=== PATIENT | male | born 1940 | race Caucasian/White ===

== ENCOUNTER → 2019-07-01 09:19 | Outpatient (CLI) | payer MEDICARE, SELFPAY ==
[2019-07-01 11:09] LABS: Add Manual Diff / Slide Review NO; Basophils Absolute Auto 0 /uL (0-100); Basophils Percent Auto 0.6 % (0-2); Eosinophils Absolute Auto 100 /uL (0-450); Eosinophils Percent Auto 1.5 % (2-4); Hematocrit 42.5 % (41-53); Hemoglobin 14.7 g/dL (13.5-17.5); Lymphocytes Absolute Auto 2200 /uL (1100-4500); Lymphocytes Percent Auto 27.8 % (25-40); Mean Corpuscular HGB Conc 34.7 % (30-36); Mean Corpuscular Hemoglobin 32.1 PG (26-34); Mean Corpuscular Volume 92.7 fL (80-100); Monocytes Absolute Auto 800 /uL (0-900); Monocytes Percent Auto 10.1 % (3-14); Neutrophils Absolute Auto 4800 /uL (1500-7000); Platelet Count 225 X10^3/uL (150-400); Red Blood Cell Count 4.58 X10^6/uL (4.5-5.9); Red Cell Distribution Width 13.4 % (11.6-14.8)
[2019-07-01 11:37] LABS: Erythrocyte Sedimentation Rate 7 MM/HR (0-15)
[2019-07-01 12:03] LABS: C-Reactive Protein Quant 0.5 mg/dL (<1.0)
== END ==
PROVIDERS: Visit Provider Physician Assistant Surgical
DX: M54.5 Low back pain (principal)
CPT/HCPCS: 36415; 85025; 85651; 86140

== ENCOUNTER → 2020-04-30 21:24 | Outpatient (ROUT) | payer MEDICARE, SELFPAY ==
[2020-04-30 22:01] LABS: Add Manual Diff / Slide Review NO; Basophils Absolute Auto 0 /uL (0-100); Basophils Percent Auto 0.4 % (0-2); Eosinophils Absolute Auto 200 /uL (0-450); Eosinophils Percent Auto 2.1 % (2-4); Hematocrit 40.1 % (41-53); Hemoglobin 13.9 g/dL (13.5-17.5); Lymphocytes Absolute Auto 2100 /uL (1100-4500); Lymphocytes Percent Auto 23.8 % (25-40); Mean Corpuscular HGB Conc 34.6 % (30-36); Mean Corpuscular Hemoglobin 31.8 PG (26-34); Monocytes Absolute Auto 800 /uL (0-900); Monocytes Percent Auto 9.6 % (3-14); Neutrophils Absolute Auto 5500 /uL (1500-7000); Neutrophils Percent Auto 64.1 % (50-75); Platelet Count 204 X10^3/uL (150-400); Red Blood Cell Count 4.36 X10^6/uL (4.5-5.9); Red Cell Distribution Width 13.4 % (11.6-14.8); White Blood Cell Count 8.6 X10^3/uL (4.5-11.0)
[2020-04-30 22:18] LABS: Alanine Aminotransferase 32 IU/L (<50); Albumin 3.7 g/dL (3.5-5.0); Albumin Globulin Ratio 1.4 (1.0-2.8); Alkaline Phosphatase 88 U/L (38-126); Aspartate Aminotransferase 18 IU/L (17-59); Bilirubin Total 0.5 mg/dL (0.2-1.3); Blood Urea Nitrogen 24 mg/dL (9-20); Calcium 9.9 mg/dL (8.4-10.2); Carbon Dioxide 22 mmol/L (22-32); Chloride 107 mmol/L (98-107); Cholesterol 153 mg/dL (140-199); Estimated Glomerular Filt Rate 55.4 mL/min (>60); Globulin 2.7 g/dL (1.7-4.1); Glucose 164 mg/dL (80-110); HDL Cholesterol 30 mg/dL (40-60); HEMOLYSIS < 15 (0-50); LDL Cholesterol Calculated 61 mg/dL (<100); Potassium 4.3 mmol/L (3.4-5.1); Sodium 137 mmol/L (137-145); Total Protein 6.4 g/dL (6.3-8.2); Triglycerides 311 mg/dL (35-150)
[2020-04-30 23:10] LABS: Hemoglobin A1C% w Est Avg Glu 7.8 % (4.0-6.0)
== END ==
PROVIDERS: Visit Provider Physician Assistant
DX: E78.2 Mixed hyperlipidemia (principal); R73.03 Prediabetes; I10 Essential (primary) hypertension
CPT/HCPCS: 80053; 80061; 83036; 85025

== ENCOUNTER → 2020-07-27 07:44 | Outpatient (CLI) | payer MEDICARE, SELFPAY ==
[2020-07-27 08:09] LABS: Add Manual Diff / Slide Review NO; Basophils Absolute Auto 0 /uL (0-100); Basophils Percent Auto 0.7 % (0-2); Eosinophils Absolute Auto 100 /uL (0-450); Eosinophils Percent Auto 2.2 % (2-4); Hematocrit 41.4 % (41-53); Hemoglobin 14.2 g/dL (13.5-17.5); Lymphocytes Absolute Auto 1900 /uL (1100-4500); Mean Corpuscular HGB Conc 34.2 % (30-36); Mean Corpuscular Hemoglobin 31.7 PG (26-34); Mean Corpuscular Volume 92.5 fL (80-100); Monocytes Absolute Auto 600 /uL (0-900); Monocytes Percent Auto 8.4 % (3-14); Neutrophils Absolute Auto 4300 /uL (1500-7000); Neutrophils Percent Auto 61.7 % (50-75); Platelet Count 208 X10^3/uL (150-400); Red Blood Cell Count 4.48 X10^6/uL (4.5-5.9); Red Cell Distribution Width 13.6 % (11.6-14.8); White Blood Cell Count 6.9 X10^3/uL (4.5-11.0)
[2020-07-27 08:44] LABS: Alanine Aminotransferase 45 IU/L (<50); Albumin 3.9 g/dL (3.5-5.0); Albumin Globulin Ratio 1.4 (1.0-2.8); Alkaline Phosphatase 89 U/L (38-126); Aspartate Aminotransferase 20 IU/L (17-59); BUN Creatinine Ratio 17.6 (6-22); Bilirubin Total 0.7 mg/dL (0.2-1.3); Blood Urea Nitrogen 25 mg/dL (9-20); Calcium 9.8 mg/dL (8.4-10.2); Carbon Dioxide 31 mmol/L (22-32); Chloride 105 mmol/L (98-107); Cholesterol 148 mg/dL (140-199); Estimated Glomerular Filt Rate 48.2 mL/min (>60); Globulin 2.8 g/dL (1.7-4.1); Glucose 193 mg/dL (80-110); HDL Cholesterol 29 mg/dL (40-60); HEMOLYSIS < 15 (0-50); LDL Cholesterol Calculated 56 mg/dL (<100); Potassium 5.1 mmol/L (3.4-5.1); Sodium 140 mmol/L (137-145); Total Protein 6.7 g/dL (6.3-8.2); Triglycerides 313 mg/dL (35-150)
[2020-07-27 08:54] LABS: Hemoglobin A1C% w Est Avg Glu 8.4 % (4.0-6.0)
== END ==
PROVIDERS: PCP Physician Assistant; Referring Provider Physician Assistant; Visit Provider Physician Assistant
DX: I10 Essential (primary) hypertension (principal); E78.2 Mixed hyperlipidemia; E11.9 Type 2 diabetes mellitus without complications
CPT/HCPCS: 36415; 80053; 80061; 83036; 85025

== ENCOUNTER → 2020-08-13 08:33 | Outpatient (CLI) | payer MEDICARE, SELFPAY ==
[2020-08-13 09:49] LABS: Add Manual Diff / Slide Review NO; Basophils Absolute Auto 0 /uL (0-100); Basophils Percent Auto 0.5 % (0-2); Eosinophils Absolute Auto 100 /uL (0-450); Eosinophils Percent Auto 1.1 % (2-4); Lymphocytes Absolute Auto 1800 /uL (1100-4500); Lymphocytes Percent Auto 23.4 % (25-40); Mean Corpuscular HGB Conc 33.4 % (30-36); Mean Corpuscular Hemoglobin 30.9 PG (26-34); Mean Corpuscular Volume 92.6 fL (80-100); Monocytes Absolute Auto 500 /uL (0-900); Monocytes Percent Auto 7.2 % (3-14); Neutrophils Absolute Auto 5100 /uL (1500-7000); Neutrophils Percent Auto 67.8 % (50-75); Platelet Count 224 X10^3/uL (150-400); Red Blood Cell Count 4.54 X10^6/uL (4.5-5.9); Red Cell Distribution Width 13.5 % (11.6-14.8); White Blood Cell Count 7.6 X10^3/uL (4.5-11.0)
[2020-08-13 10:07] LABS: Hemoglobin A1C% w Est Avg Glu 8.3 % (4.0-6.0)
[2020-08-13 10:24] LABS: Alanine Aminotransferase 47 IU/L (<50); Albumin 3.8 g/dL (3.5-5.0); Albumin Globulin Ratio 1.3 (1.0-2.8); Alkaline Phosphatase 80 U/L (38-126); Aspartate Aminotransferase 23 IU/L (17-59); Bilirubin Total 0.9 mg/dL (0.2-1.3); Blood Urea Nitrogen 26 mg/dL (9-20); Calcium 9.8 mg/dL (8.4-10.2); Carbon Dioxide 29 mmol/L (22-32); Chloride 104 mmol/L (98-107); Cholesterol 175 mg/dL (140-199); Estimated Glomerular Filt Rate 53.4 mL/min (>60); Glucose 167 mg/dL (80-110); HDL Cholesterol 32 mg/dL (40-60); HEMOLYSIS < 15 (0-50); Potassium 4.7 mmol/L (3.4-5.1); Sodium 136 mmol/L (137-145); Total Protein 6.8 g/dL (6.3-8.2); Triglycerides 446 mg/dL (35-150)
== END ==
PROVIDERS: PCP Physician Assistant; Referring Provider Physician Assistant; Visit Provider Physician Assistant
DX: I10 Essential (primary) hypertension (principal); E78.2 Mixed hyperlipidemia; E11.9 Type 2 diabetes mellitus without complications
CPT/HCPCS: 80053; 80061; 83036; 85025

== ENCOUNTER → 2020-12-26 07:59 | Outpatient (CLI) | payer MEDICARE, SELFPAY ==
[2020-12-26 08:51] LABS: Hemoglobin A1C% w Est Avg Glu 6.8 % (4.0-6.0)
[2020-12-26 08:54] LABS: Add Manual Diff / Slide Review NO; Basophils Absolute Auto 0 /uL (0-100); Basophils Percent Auto 0.6 % (0-2); Eosinophils Absolute Auto 100 /uL (0-450); Eosinophils Percent Auto 1.5 % (2-4); Hematocrit 41.1 % (41-53); Lymphocytes Absolute Auto 1700 /uL (1100-4500); Lymphocytes Percent Auto 23.4 % (25-40); Mean Corpuscular HGB Conc 34.1 % (30-36); Mean Corpuscular Hemoglobin 31.6 PG (26-34); Mean Corpuscular Volume 92.7 fL (80-100); Monocytes Absolute Auto 500 /uL (0-900); Neutrophils Absolute Auto 4900 /uL (1500-7000); Neutrophils Percent Auto 67.5 % (50-75); Platelet Count 229 X10^3/uL (150-400); Red Blood Cell Count 4.43 X10^6/uL (4.5-5.9); Red Cell Distribution Width 13.3 % (11.6-14.8); White Blood Cell Count 7.2 X10^3/uL (4.5-11.0)
[2020-12-26 09:04] LABS: Alanine Aminotransferase 35 IU/L (<50); Albumin 3.9 g/dL (3.5-5.0); Albumin Globulin Ratio 1.6 (1.0-2.8); Alkaline Phosphatase 82 U/L (38-126); Aspartate Aminotransferase 21 IU/L (17-59); BUN Creatinine Ratio 16.2 (6-22); Bilirubin Total 0.7 mg/dL (0.2-1.3); Blood Urea Nitrogen 19 mg/dL (9-20); Calcium 9.9 mg/dL (8.4-10.2); Carbon Dioxide 24 mmol/L (22-32); Chloride 105 mmol/L (98-107); Cholesterol 151 mg/dL (140-199); Estimated Glomerular Filt Rate > 60.0 mL/min (>60); Globulin 2.5 g/dL (1.7-4.1); Glucose 132 mg/dL (80-110); HDL Cholesterol 34 mg/dL (40-60); HEMOLYSIS < 15 (0-50); LDL Cholesterol Calculated 69 mg/dL (<100); Potassium 4.4 mmol/L (3.4-5.1); Sodium 139 mmol/L (137-145); Total Protein 6.4 g/dL (6.3-8.2); Triglycerides 239 mg/dL (35-150)
[2020-12-26 09:21] LABS: Creatinine Urine Random 103.3 mg/dL
[2020-12-26 09:42] LABS: Microalbumi Creatinin Ratio Ur 220.7 ug/mg CR (<30); Microalbumin Urine Random 22.8 mg/dL (0-1.6)
== END ==
PROVIDERS: PCP Physician Assistant; Referring Provider Physician Assistant; Visit Provider Physician Assistant
DX: E11.69 Type 2 diabetes mellitus with other specified complication (principal); N18.30 Chronic kidney disease, stage 3 unspecified; E11.22 Type 2 diabetes mellitus with diabetic chronic kidney disease
CPT/HCPCS: 36415; 80053; 80061; 82043; 82570; 83036; 85025

== ENCOUNTER → 2021-04-09 11:56 | Outpatient (CLI) | payer MEDICARE, SELFPAY ==
--- NOTE | 2021-04-09 12:12 | DI.CT.S_ITS ---
PROCEDURE: CT MASTOID TEMPORAL INDICATIONS: Dizziness and giddiness COMPARISON: [facility], CT, CT IAC WITHOUT CONTRAST, 08/01/2020, 8:33. TECHNIQUE: Noncontrast 0.6 mm thick direct axial and coronal sections acquired through each temporal bone separately. FINDINGS: Image quality: Excellent. RIGHT: External auditory canal: Canal has a normal appearance. Middle ear: The middle ear structures, including the ossicles and tympanic membrane, appear normal. No abnormal fluid or soft tissue density. Inner ear: Inner ear is normally formed and appears unremarkable. Facial nerve appears normal throughout is course. Mastoids: Trace right mastoid air cell effusion. LEFT: Postsurgical changes of left canal wall up mastoidectomy for cochlear implantation. There is fluid/soft tissue density within the mastoidectomy cavity, nonspecific. Plate opacification of the left mastoid air cells. Cochlear implant leads appear to be intact and are in the normal expected position. Remaining inner ear structures are normal. IMPRESSION: Postsurgical changes of left canal wall up mastoidectomy for cochlear implantation. Appropriate normal position of cochlear implant leads. No semicircular canal dehiscence on the left. Complete fluid/soft tissue opacification of the left mastoid air cells and mastoidectomy bowl, nonspecific. Normal right temporal bone CT. Dictated by: Bryon Yang M.D. on 04/09/2021 at 17:01 Approved by: Bryon Yagn M.D. on 04/09/2021 at 17:06
== END ==
PROVIDERS: PCP Physician Assistant; Referring Provider Otolaryngology; Visit Provider Otolaryngology
DX: R42 Dizziness and giddiness (principal); Z96.21 Cochlear implant status
CPT/HCPCS: 70480

== ENCOUNTER 2022-12-29 19:07 | Observation (INO) | payer MEDICARE, SELFPAY ==
[2022-12-29] VITALS (13 sets, daily range): BP systolic 132–180; BP diastolic 58–74; PULSE 71–80; RESP 16–33; O2SAT 93–96; BMI 27.9
--- NOTE | 2022-12-29 19:26 | DI.RAD.S_ITS ---
PROCEDURE: XR CHEST 1V INDICATIONS: chest pain TECHNIQUE: One view of the chest was acquired. COMPARISON: None. FINDINGS: Surgical changes and devices: Sternotomy wires. Lungs and pleura: Low lung volumes. No dense consolidation or pleural effusion. Mediastinum: Heart size is at the upper limit of normal. Bones and chest wall: No suspicious bony lesions. Overlying soft tissues appear unremarkable. IMPRESSION: No acute radiographic abnormality. Dictated by: Jack Contreras M.D. on 12/29/2022 at 20:56 Approved by: Jack Contreras M.D. on 12/29/2022 at 20:56
--- NOTE | 2022-12-29 19:33 | DI.RAD.S_ITS ---
PROCEDURE: XR KNEE RT 3V INDICATIONS: fall TECHNIQUE: 3 views of the knee were acquired. COMPARISON: None. FINDINGS: Bones: No displaced fracture or dislocation. [id number] degenerative changes. Periarticular calcifications are present. Joint space narrowing, particularly pronounced in the lateral patellofemoral compartment. Soft tissues: Possible small knee joint effusion and periarticular calcifications, as well as chondrocalcinosis. Vascular calcifications also present. IMPRESSION: Degenerative changes, particularly in the lateral patellofemoral compartment. Small knee joint effusion. Periarticular calcifications, as well as chondrocalcinosis. If there is high concern for further derangement, consider MRI evaluation. Dictated by: Jcak Contreras M.D. on 12/29/2022 at 20:56 Approved by: Jack Contreras M.D. on 12/29/2022 at 20:58
--- NOTE | 2022-12-29 19:34 | DI.CT.S_ITS ---
PROCEDURE: CT HEAD/BRAIN WO CON INDICATIONS: fall TECHNIQUE: Noncontrast 4.5 mm thick angled axial sections acquired from the foramen magnum to the vertex, with coronal and sagittal reformats. For radiation dose reduction, the following was used: automated exposure control, adjustment of mA and/or kV according to patient size. COMPARISON: [facility], CT, CT IAC WITHOUT CONTRAST, 08/01/2020, 8:33. FINDINGS: Image quality: Good CSF spaces: Basal cisterns are patent. Lateral ventricles are symmetric. Volume: Vascular calcifications. Periventricular white matter disease is commonly seen with chronic microangiopathy. Volume loss is present. These findings are moderate Brain: No intracranial hemorrhage. Armas-white differentiation is grossly maintained. Craniofacial structures: Right periorbital contusion. Left scalp device and left mastoid postsurgical changes. Paranasal sinus mucous cysts. IMPRESSION: No acute intracranial abnormality. Dictated by: Jack Contreras M.D. on 12/29/2022 at 20:21 Approved by: Jack Contreras M.D. on 12/29/2022 at 20:24
--- NOTE | 2022-12-29 19:34 | DI.CT.S_ITS ---
PROCEDURE: CT CERVICAL SPINE WO CON INDICATIONS: fall TECHNIQUE: Noncontrast 3 mm thick sections acquired from the skull base to the T4 level. Sagittal and coronal reformats were then constructed. For radiation dose reduction, the following was used: automated exposure control, adjustment of mA and/or kV according to patient size. COMPARISON: None. FINDINGS: Image quality: Good Bones: [id number] degenerative changes including trace anterolisthesis of C3 on C4 and C4 on C5. Vertebral body heights are well maintained. No traumatic malalignment. Moderate pannus formation around the C1/C2 articulation. Sternotomy wires partially seen. Soft tissues: Vascular calcifications. No pathologic prevertebral soft tissue swelling. IMPRESSION: No acute fracture or traumatic subluxation of the cervical spine. Irza-ee-lzjxzbav spondylosis. If there is high concern for further derangement, consider MRI evaluation. Dictated by: Jack Contreras M.D. on 12/29/2022 at 20:25 Approved by: Jack Contreras M.D. on 12/29/2022 at 20:28
[2022-12-29 20:42] LABS: Add Manual Diff / Slide Review NO; Basophils Absolute Auto 100 /uL (0-100); Basophils Percent Auto 0.5 % (0-2); Eosinophils Absolute Auto 200 /uL (0-450); Eosinophils Percent Auto 1.6 % (2-4); Hemoglobin 12.4 g/dL (13.5-17.5); Lymphocytes Absolute Auto 2300 /uL (1100-4500); Lymphocytes Percent Auto 19.4 % (25-40); Mean Corpuscular HGB Conc 34.5 % (30-36); Mean Corpuscular Hemoglobin 30.9 PG (26-34); Mean Corpuscular Volume 89.4 fL (80-100); Monocytes Absolute Auto 1400 /uL (0-900); Neutrophils Absolute Auto 7800 /uL (1500-7000); Neutrophils Percent Auto 66.5 % (50-75); Platelet Count 211 X10^3/uL (150-400); Red Blood Cell Count 4.03 X10^6/uL (4.5-5.9); Red Cell Distribution Width 13.4 % (11.6-14.8); White Blood Cell Count 11.7 X10^3/uL (4.5-11.0)
[2022-12-29 20:57] LABS: INR 1.1 (0.9-1.3); Prothrombin Time 12.6 SECONDS (10.1-12.7)
--- NOTE | 2022-12-29 20:59 | ED_ITS ---
HPI - General Adult General Chief complaint: Trauma Stated complaint: rt leg pain, passed out Time Seen by Provider: 12/29/22 19:44 Source: patient and family Mode of arrival: Wheelchair History of Present Illness HPI narrative: 82-year-old gentleman with history of coronary artery disease status post four- vessel CABG, peripheral arterial disease, aortic stenosis, hypertension, hyperlipidemia, chronic kidney disease, type 2 diabetes who presents to the emergency room 3 days after a syncopal episode with increasing weakness to the point it required 2 person assist to get him out of the house and into a car. Four days ago he describes an episode where he stumbled walking to the bathroom falling on his right knee with right knee pain. The right knee pain has gotten significantly worse. He was having nausea and vomiting for at least 2 days and 3 days ago when getting up to go to the bathroom, negotiating the right knee pain he had a full syncopal episode in the bathroom hitting his head and injuring his right knee more. He did not want to come to the emergency department. He notes that the nausea and vomiting was significantly better as of yesterday however he still is eating and drinking very little. With prior cardiac episodes his presentation has been complaints of nausea. His son and [id number] tried to get him to an orthopedic appointment today regarding the right knee injury however he was too weak to be seen and they came to the emergency room for further evaluation. He is not describing fevers, cough, chills. Is deaf with cochlear implants. Related Data Allergies Allergy/AdvReac Type Severity Reaction Status Date / Time No Known Drug Allergies Allergy Verified 12/29/22 22:36 Review of Systems Review of Systems Narrative: Pertinent positive and negative findings as per HPI Patient History Medical History (Updated 12/29/22 @ 23:45 by Kay Orozco MD) Chronic kidney disease Coronary artery disease Diabetes Hyperlipidemia Hypertension Surgical History (Updated 12/29/22 @ 23:15 by Kay Orozco MD) Status post aorto-coronary artery bypass graft Social History Smoking Status: Never smoker Smoking Status: Never smoker Substance Use Type: does not use Exam Initial Vital Signs Initial Vital Signs: Vital Signs Pulse Rate 80 12/29/22 19:20 Respiratory Rate 18 12/29/22 19:20 Blood Pressure 180/74 H 12/29/22 19:20 Pulse Oximetry 95 12/29/22 19:20 Oxygen Delivery Method Room Air 12/29/22 19:20 General: Chronically ill-appearing, can read lips and participate in exam. HEENT: Dry mucous membranes, normal sclera with reactive pupils, significant contusion around his right eye but able to fully open that eye, Neck: No JVD, supple Respiratory: Lungs are clear to auscultation, no wheezing no rales no rhonchi. Full and symmetrical air movement. No tenderness to palpation with manipulation of his ribcage Cardiac: Regular rate and rhythm, 3/6 systolic murmur Abdomen: Soft, nontender, good bowel tones, no flank pain. No tenderness along thoracic or lumbar spine with palpation. No tenderness to pelvic ring with manipulation Skin: Very dry skin, multiple bruises over his arms and right hip. Neurologic: Globally weak but otherwise Grossly neurologically intact with no obvious asymmetries or abnormalities Extremities: No tenderness to the left lower extremity, right knee is significantly tender to tender for more thorough exam with minimal effusion. Does not have tenderness at the hip or the ankle. Psych: Cooperative, poor overall insight Course Orders Ordered: ED Orders 12/29/22 19:26 XR chest 1V Stat COVID19 -Nasal RAPID Stat EKG-12 Lead Stat 12/29/22 19:33 XR knee RT 3V Stat 12/29/22 19:34 CT cervical spine wo con Stat CT head/brain wo con Stat 12/29/22 20:17 Complete Blood Count AUTO DIFF Stat Comprehensive Metabolic Panel Stat Lipase Stat Magnesium Stat PTT Partial Thromboplastin Nick Stat Prothrombin Time INR Stat Troponin & CK Cardiac Panel Stat Vital Signs Vital signs: Vital Signs - 8 hr 12/29/22 19:20 12/29/22 19:31 12/29/22 19:32 Pulse Rate 80 79 79 Respiratory Rate 18 18 17 Blood Pressure 180/74 H Pulse Oximetry 95 96 95 Oxygen Delivery Method Room Air 12/29/22 19:32 12/29/22 20:19 12/29/22 20:30 Pulse Rate 75 75 Respiratory Rate 16 20 Blood Pressure 180/74 H Pulse Oximetry 95 94 Oxygen Delivery Method 12/29/22 21:00 12/29/22 21:30 12/29/22 22:00 Pulse Rate 75 73 76 Respiratory Rate 33 H 21 20 Blood Pressure Pulse Oximetry 95 96 94 Oxygen Delivery Method 12/29/22 22:30 Pulse Rate 72 Respiratory Rate 23 Blood Pressure Pulse Oximetry 95 Oxygen Delivery Method Medical Decision Making Lab Data 12/29/22 20:17 12/29/22 20:17 Labs: Lab Results 12/29/22 12/29/22 12/29/22 Range/Units 20:17 20:17 20:17 WBC 11.7 H (4.5-11.0) X10^3/uL RBC 4.03 L (4.5-5.9) X10^6/uL Hgb 12.4 L (13.5-17.5) g/dL Hct 36.0 L (41-53) % MCV 89.4 (80-100) fL MCH 30.9 (26-34) PG MCHC 34.5 (30-36) % RDW 13.4 (11.6-14.8) % Plt Count 211 (150-400) X10^3/uL Neut % (Auto) 66.5 (50-75) % Lymph % (Auto) 19.4 L (25-40) % [place] % (Auto) 12.0 (3-14) % Eos % (Auto) 1.6 L (2-4) % Baso % (Auto) 0.5 (0-2) % Neut # (Auto) 7800 H (3485-4366) /uL Lymph # (Auto) 2300 (5594-5112) /uL [place] # (Auto) 1400 H (0-900) /uL Eos # (Auto) 200 (0-450) /uL Baso # (Auto) 100 (0-100) /uL PT 12.6 (10.1-12.7) SECONDS INR 1.1 (0.9-1.3) APTT 25 L (26-36) SECONDS Sodium 136 L (137-145) mmol/L Potassium 4.3 (3.4-5.1) mmol/L Chloride 101 (98-107) mmol/L Carbon Dioxide 26 (22-32) mmol/L BUN 37 H (9-20) mg/dL Creatinine 1.55 H (0.66-1.25) mg/dL Estimated GFR 45 L (>60) mL/min BUN/Creatinine Ratio 23.9 H (6-22) Glucose 165 H (80-110) mg/dL Calcium 10.1 (8.4-10.2) mg/dL Magnesium 2.1 (1.6-2.3) mg/dL Total Bilirubin 1.6 H (0.2-1.3) mg/dL AST 19 (17-59) IU/L ALT 29 (<50) IU/L Alkaline Phosphatase 69 (38-126) U/L Total Creatine Kinase 144 (55-170) U/L CK-MB (CK-2) 1.24 (<2.37) ng/mL CK-MB (CK-2) Rel Index 0.9 L (1.5-5.0) % Troponin I < 0.012 (0.01-0.034) ng/mL Total Protein 7.3 (6.3-8.2) g/dL Albumin 3.9 (3.5-5.0) g/dL Globulin 3.4 (1.7-4.1) g/dL Albumin/Globulin Ratio 1.1 (1.0-2.8) Lipase 85 (23-300) U/L MDM Narrative Medical decision making narrative: CC: Syncope with fall 3 days ago Complicating co-morbidities: Coronary artery disease, prior cardiac events have started with nausea and vomiting, deaf, hypertension, hyperlipidemia, diabetes Data collected from: patient, , son Social determinants of health that may influence the patients condition: Medical records reviewed: Notes from [facility] are reviewed. Medical history is obtained from [employer] EMR. Medications currently include amlodipine 10 mg nightly, 81 mg of aspirin, losartan 50 mg nightly, metformin 1 g b.i.d., metoprolol succinate 100 mg daily, rosuvastatin 40 mg daily, Victoza daily Differential considered: Cardiac syncope, worsening renal failure, NSTEMI/acute coronary syndrome, intracranial hemorrhage, trauma from his falls including acute knee injury, other infection Exam documented above, pertinent findings include: A black eye on the right side with good extraocular eye movement. No neck tenderness. Lungs are clear. He has a 3/6 systolic murmur. Abdomen is nontender. No tenderness along his thoracic or lumbar spine to palpation. No tenderness along his pelvic ring. Is not tender at the right hip with internal or external rotation. Significant tenderness with any movement of the right knee with minor effusion and no ecchymosis or contusion. No tenderness at the ankle on the right side. He has multiple bruises to his upper extremity on the right side. Lab Test results independently reviewed as above. Pertinent findings: White blood cell count shows a leukocytosis at 11.7 without significant left rosalind ft. Mild anemia with hemoglobin at 12.4 and hematocrit 36.0 Chemistries currently show elevated creatinine at 1.55 with decreased GFR to 45. Bilirubin is elevated at 1.6 Troponin is unremarkable. Independently reviewed EKG shows sinus rhythm at a rate of 78, ST T wave abnormalities laterally. Compared to EKG through [facility] EMR of November 24 similar findings including T-wave abnormalities. Imaging studies independently reviewed: Chest x-ray shows no acute cardiopulmonary abnormality. CT scan of the cervical spine does not show acute fracture CT scan of the head shows no acute intracranial abnormality with right periorbital contusion X-ray of the knee shows no displaced fracture dislocation. Treatments: IV fluids Re-evaluations: Discussed findings with patient his and his son. He does have mild acute kidney injury but at this point I am not seeing signs of acute coronary syndrome or acute infectious etiology. I have not started any antibiotics at this time. Urine still needs to be collected and further evaluated. At this point he is too weak to get up or move by himself and I believe discharge home is unsafe. He is no longer vomiting but he is also not eating or drinking. Recommended hospitalization due to global weakness, acute kidney injury, dehydration with syncopal episode. He has a knee immobilizer on the right knee and eventually will need further evaluation and likely MRI imaging of this knee. The knee immobilizer will further impair his mobility for home. Recommendations reviewed with his and his son both of whom agree that hospitalization is going to be the best option for this gentleman. Care is reviewed with hospitalist service and patient will be admitted with continued fluid resuscitation and will need physical therapy evaluation. Discharge Plan Departure Patient Disposition: Admitted as Observation Clinical Impression: Acute dehydration, Weakness, Syncope and collapse, Acute kidney injury Referrals: Chantal Dumont PA-C [Primary Care Provider] -
[2022-12-29 21:00] LABS: PTT Partial Thromboplastin Tim 25 SECONDS (26-36)
[2022-12-29 21:02] LABS: Alanine Aminotransferase 29 IU/L (<50); Albumin 3.9 g/dL (3.5-5.0); Albumin Globulin Ratio 1.1 (1.0-2.8); Alkaline Phosphatase 69 U/L (38-126); Aspartate Aminotransferase 19 IU/L (17-59); BUN Creatinine Ratio 23.9 (6-22); Bilirubin Total 1.6 mg/dL (0.2-1.3); Blood Urea Nitrogen 37 mg/dL (9-20); Calcium 10.1 mg/dL (8.4-10.2); Carbon Dioxide 26 mmol/L (22-32); Chloride 101 mmol/L (98-107); Creatine Kinase 144 U/L (55-170); Estimated Glomerular Filt Rate 45 mL/min (>60); Globulin 3.4 g/dL (1.7-4.1); Glucose 165 mg/dL (80-110); HEMOLYSIS < 15 (0-50); Lipase 85 U/L (23-300); Magnesium 2.1 mg/dL (1.6-2.3); Potassium 4.3 mmol/L (3.4-5.1); Sodium 136 mmol/L (137-145); Total Protein 7.3 g/dL (6.3-8.2)
[2022-12-29 21:13] LABS: Troponin I < 0.012 ng/mL (0.01-0.034)
[2022-12-29 21:17] LABS: CKMB % Relative Index 0.9 % (1.5-5.0); Creatine Kinase MB 1.24 ng/mL (<2.37)
--- NOTE | 2022-12-29 22:43 | PC.NURSE ---
pt states he is unable to tolerate weight bearing on the right leg, pt has been sitting on 's walker seat and scooting around, states she is comfortable taking him home and to continue doing as they have with him getting around Dr Orozco informed
[2022-12-29] MEDS: SODIUM CHLORIDE 0.9% 1,000 ML 1000 ML IV (23:35)
--- NOTE | 2022-12-29 23:42 | DI.US.S_ITS ---
PROCEDURE: US ABDOMEN COMPLETE INDICATIONS: NAUSEA/VOMITING/ELEVATED BILIRUBIN TECHNIQUE: Real-time scanning was performed of the abdominal and retroperitoneal organs, with image documentation. COMPARISON: None. FINDINGS: Liver: Liver is normal in size. Mildly lobular contour with heterogeneously increased liver parenchymal echotexture is seen. Ill-defined hypoechoic area within right hepatic lobe near gallbladder lumen is seen measures 3.8 x 1.3 x 2.4 cm in size and show minimal internal vascularity. Gallbladder: Suggestion of sludge material and multiple hypoechoic stones seen in dependent portion of gallbladder lumen measures up to 1.4 x 1.5 x 0.7 cm in size. Gallbladder wall thickening is seen with trace amount of pericholecystic fluid. Gallbladder wall measures up to 17.3 mm in thickness. No sonographic Garcia sign. Biliary ducts: Intrahepatic bile ducts are non-dilated. Extrahepatic bile duct caliber measures 2.5 mm. Normal is 6-7 mm or less in diameter, or 10 mm or less post-cholecystectomy. Pancreas: Visualized portions of the pancreas are sonographically normal. Spleen: Spleen is normal in size and homogeneous in echotexture. Kidneys: Kidneys are normal in size and echotexture. Right kidney measures 13.8 cm long; left kidney measures 14.1 cm long. Mild right-sided hydronephrosis and very mild left-sided pelviectasis is seen. Mild left renal cortical thinning is noted. Bilateral renal cysts are seen measures up to 5 x 6.4 x 4.4 cm in size in lower pole right kidney with thick irregular avascular internal septation. Simple appearing cyst in lower pole of right kidney is also seen measures 7.4 x 7.4 x 4.9 cm in size. Simple appearing cyst is noted in parapelvic area of left kidney measures 6.6 x 6.3 x 5.6 cm in size. A 5.5 x 5.3 x 3.6 cm anechoic cyst with calcified septation is noted in lower pole of left kidney. Multiple punctate bilateral nonobstructing renal calculi are seen. Linear calcifications are also noted in right kidney which may represent vascular calcifications. Aorta: Visualized aorta is normal in caliber at less than 3 cm. Iliacs: Proximal common iliac arteries are normal in caliber at less than 2.5 cm. IVC: Intrahepatic inferior vena cava is patent. Miscellaneous: No free abdominal fluid. Prostate is enlarged and measures 7.1 x 6 x 4.2 cm in size. IMPRESSION: 1. Evaluation is slightly limited due to overlying bowel gas. 2. Hepatic steatosis with suggestion of ill-defined area of sparing near gallbladder fossa as above. No definite vascular hepatic lesion is seen. 3. Cholelithiasis with gallbladder wall thickening and trace amount of pericholecystic fluid. Finding could represent chronic cholecystitis. 4. No biliary ductal dilatation. 5. Bilateral renal cysts as above. Punctate nonobstructing stones are seen in bilateral kidneys. Possible vascular calcifications are seen in right kidney. Suggestion of mild right-sided hydronephrosis and trace left-sided hydronephrosis. Enlarged prostate gland with significant mass effect on floor of urinary bladder. Urological correlation is recommended. Dictated by: Kaleb Merino M.D. on 12/30/2022 at 9:42 Approved by: Kaleb Merino M.D. on 12/30/2022 at 9:47
--- NOTE | 2022-12-29 23:46 | PM.HP.1 ---
History of Present Illness History of Present Illness Date Patient Seen: 12/29/22 Time Patient Seen: 23:45 Chief complaint: rt leg pain, passed out Narrative: Mr. Castro is an 82M with PMH CAD, PAD, aortic stenosis, HTN, HL, Type 2 Dm who presents to the hospital with weakness. He apparently had a fall at home four days ago and hurt his right knee. He is having worsening pain and difficulty with ambulating. He also has had nausea and vomiting and poor appetite for 2-3 days. He also had an episode of syncope in the bathroom where he hit his face. He declined to come to the hospital then. Since he has continued to have a poor appetite. He has had no chest pain or shortness of breath. He attempted to go to an ortho appointment but was too weak so came to the ED. He had no fevers/chills. In the ED workup was done, vitals notable for afebrile, heart rate in the 80s, respiratory rate 18, blood pressure 180s/70s. Sats 95% on room air. Labs reviewed by me and notable for WBC 11.7, hgb 12.4, plts 211. Creatinine 1.55. Bili 1.6. Trop negative. Lipase 85. Chest xray reviewed and negative for acute process. Right knee xray shows small effusion. CT C-spine negatve for acute process. CT head negative for acute process. [facility] Medical History Chronic kidney disease Coronary artery disease Diabetes Hyperlipidemia Hypertension Surgical History Status post aorto-coronary artery bypass graft Social History Smoking Status: Never smoker Meds Home Medications and Allergies Allergies Allergy/AdvReac Type Severity Reaction Status Date / Time No Known Drug Allergies Allergy Verified 12/29/22 22:36 Review of Systems Review of Systems Narrative: 14 systems reviewed and negative aside from what is noted in HPI Exam Vital Signs (past 8 hours): - 12/29/22 19:20 12/29/22 19:31 12/29/22 19:32 Pulse Rate 80 79 79 Respiratory Rate 18 18 17 Blood Pressure 180/74 H Pulse Oximetry 95 96 95 Oxygen Delivery Method Room Air 12/29/22 19:32 12/29/22 20:19 12/29/22 20:30 Pulse Rate 75 75 Respiratory Rate 16 20 Blood Pressure 180/74 H Pulse Oximetry 95 94 Oxygen Delivery Method 12/29/22 21:00 12/29/22 21:30 12/29/22 22:00 Pulse Rate 75 73 76 Respiratory Rate 33 H 21 20 Blood Pressure Pulse Oximetry 95 96 94 Oxygen Delivery Method 12/29/22 22:30 12/29/22 23:00 12/29/22 23:30 Pulse Rate 72 74 71 Respiratory Rate 23 25 H 20 Blood Pressure Pulse Oximetry 95 96 96 Oxygen Delivery Method 12/29/22 23:31 12/29/22 23:31 Pulse Rate 73 Respiratory Rate 17 Blood Pressure 132/58 L Pulse Oximetry 96 Oxygen Delivery Method Oxygen Delivery Method Room Air Narrative Exam Narrative: GEN: no acute distress HEENT: dry mucous membranes, PERRL, ecchymosis around his right eye NECK: trachea midline, no jvd PULM: clear bilaterally CV: regular rate and rhythm, 2/6 systolic murmur ABD: soft, nontender, nondistended, no organomegaly, normal bowel sounds EXT: warm and well perfused with no edema, right knee tenderness with knee immobilizer present NEURO: awake, alert, oriented, with no focal deficits noted Objective Labs 12/29/22 20:17 12/29/22 20:17 Labs: Laboratory Results - last 24 hr 12/29/22 12/29/22 12/29/22 20:17 20:17 20:17 WBC 11.7 H RBC 4.03 L Hgb 12.4 L Hct 36.0 L MCV 89.4 MCH 30.9 MCHC 34.5 RDW 13.4 Plt Count 211 Neut % (Auto) 66.5 Lymph % (Auto) 19.4 L [place] % (Auto) 12.0 Eos % (Auto) 1.6 L Baso % (Auto) 0.5 Neut # (Auto) 7800 H Lymph # (Auto) 2300 [place] # (Auto) 1400 H Eos # (Auto) 200 Baso # (Auto) 100 PT 12.6 INR 1.1 APTT 25 L Sodium 136 L Potassium 4.3 Chloride 101 Carbon Dioxide 26 BUN 37 H Creatinine 1.55 H Estimated GFR 45 L BUN/Creatinine Ratio 23.9 H Glucose 165 H Calcium 10.1 Magnesium 2.1 Total Bilirubin 1.6 H AST 19 ALT 29 Alkaline Phosphatase 69 Total Creatine Kinase 144 CK-MB (CK-2) 1.24 CK-MB (CK-2) Rel Index 0.9 L Troponin I < 0.012 Total Protein 7.3 Albumin 3.9 Globulin 3.4 Albumin/Globulin Ratio 1.1 Lipase 85 Assessment & Plan Assessment & Plan narrative: 1. Syncope, weakness -suspect syncope is secondary to nausea and vomiting -most likely etiology is hypovolemia -did get fluids in the ED -continue IV fluids -check orthostatics in the AM -ordered for PT consult -other etiology is vasovagal fro vomiting or possible symptomatic aortic stenosis -ordered echo to eval severity 2. GUAD[place]UPE -suspect secondary to hypovolemia -ordered IV fluids -recheck creatinine in morning, if not improved will need further workup with urine electrolytes and imaging 3. Leukocytosis -unclear etiology -no fevers, chills -with nausea, vomiting, mildly elevated bilirubin will order abdominal ultrasound -check urinalysis -chest xray negative for infection -may be stress response and not infectious 4. Elevated bilirubin -no other abnormal lfts -trend lfts -ordered abdominal ultrasound as has been having nausea, vomiting 5. CAD -continue home medications once reconciled 6. HTN -hold anti-hypertensives for now 7. Type 2 Diabetes -ordered insulin sliding scale -check glucose achs 8. Aortic stenosis -ordered for echo to evaluate severity of stenosis 9. Knee pain -follow up with outpatient knee mri -knee immobilizer in place I have obtained history from patient and medical providers. I have discussed plan of care with ED physican and bedside nurse. I have reviewed labs, imaging, and medical notes. CODE: unknown, Proxy: Mayra Matthew, spouse
[2022-12-29 23:59] LABS: COVID19 -Nasal RAPID Negative (Negative)
[2022-12-30] VITALS (18 sets, daily range): BP systolic 121–163; BP diastolic 47–74; PULSE 72–89; RESP 16–30; TEMP 36.4–37.1; O2SAT 93–97; BMI 27.9
[2022-12-30 00:03] LABS: NT-proBNP (BNP-Adult 18+) 481 pg/mL (<450)
[2022-12-30 01:11] LABS: Adenovirus Not Detected (Not Detect); B. parapertussis Not Detected (Not Detecte); Bordetella pertussis Not Detected (Not Detecte); Chlamydophila pneumoniae Not Detected (Not Detect); Coronavirus 229E Not Detected (Not Detect); Coronavirus HKU1 Not Detected (Not Detect); Coronavirus NL 63 Not Detected (Not Detect); Coronavirus OC43 Not Detected (Not Detect); Human Metapneumovirus Not Detected (Not Detect); Human Rhinovirus/Enterovirus Not Detected (Not Detect); Influenza A Not Detected (Not Detect); Influenza B Not Detected (Not Detect); Mycoplasma pneumoniae Not Detected (Not Detect); Parainfluenza Virus 1 Not Detected (Not Detect); Parainfluenza Virus 2 Not Detected (Not Detect); Parainfluenza Virus 3 Not Detected (Not Detect); Parainfluenza Virus 4 Not Detected (Not Detect); Respiratory Syncytial Virus Not Detected (Not Detect); SARS- CoV-2 Not Detected (Not Detecte)
[2022-12-30] MEDS: SODIUM CHLORIDE 0.45% 1,000 ML 100 ML IV ×3 (03:06→21:55)
[2022-12-30 03:37] LABS: Bacteria Urine None Seen; Culture Indicated Urine Cult Not Indicated; Hyaline Casts Urine 0-1/LPF; RBC Urine None Seen (0-5/HPF); Squamous Epithelial Cell Urine 0-1 /HPF (0-5/HPF); WBC Urine 0-1/HPF (0-5/HPF)
[2022-12-30 06:31] LABS: Add Manual Diff / Slide Review NO; Basophils Absolute Auto 100 /uL (0-100); Basophils Percent Auto 0.6 % (0-2); Eosinophils Absolute Auto 200 /uL (0-450); Eosinophils Percent Auto 2.2 % (2-4); Hematocrit 33.1 % (41-53); Hemoglobin 11.4 g/dL (13.5-17.5); Lymphocytes Absolute Auto 2000 /uL (1100-4500); Lymphocytes Percent Auto 21.4 % (25-40); Mean Corpuscular HGB Conc 34.5 % (30-36); Mean Corpuscular Hemoglobin 31.1 PG (26-34); Monocytes Absolute Auto 1000 /uL (0-900); Monocytes Percent Auto 10.3 % (3-14); Neutrophils Absolute Auto 6200 /uL (1500-7000); Neutrophils Percent Auto 65.5 % (50-75); Platelet Count 189 X10^3/uL (150-400); Red Blood Cell Count 3.68 X10^6/uL (4.5-5.9); Red Cell Distribution Width 13.4 % (11.6-14.8); White Blood Cell Count 9.5 X10^3/uL (4.5-11.0)
[2022-12-30 06:36] LABS: Alanine Aminotransferase 34 IU/L (<50); Albumin 3.2 g/dL (3.5-5.0); Alkaline Phosphatase 62 U/L (38-126); Aspartate Aminotransferase 22 IU/L (17-59); BUN Creatinine Ratio 23.3 (6-22); Bilirubin Total 1.4 mg/dL (0.2-1.3); Blood Urea Nitrogen 31 mg/dL (9-20); Calcium 8.8 mg/dL (8.4-10.2); Carbon Dioxide 24 mmol/L (22-32); Chloride 103 mmol/L (98-107); Estimated Glomerular Filt Rate 54 mL/min (>60); Globulin 3.1 g/dL (1.7-4.1); Glucose 133 mg/dL (80-110); HEMOLYSIS < 15 (0-50); Potassium 3.9 mmol/L (3.4-5.1); Sodium 135 mmol/L (137-145); Total Protein 6.3 g/dL (6.3-8.2)
[2022-12-30] MEDS: ENOXAPARIN 40 MG/0.4 ML SYRINGE SUBCUT (08:18)
--- NOTE | 2022-12-30 12:40 | CM.DANOTE ---
Initial DCP Assessment Note Pt is an 82 yo male, resident of [place], arrives to the ER w/weakness and right leg pain, passed out admitted observation for further w/u- dehydration vs vasovagal vs symptomatic aortic stenosis, echo and PT/OT ordered PCP: Daren Lyle Payer: QUIN/MEGHANP Met w/patient and spouse this morning at bedside to introduce self and role. Patient is mostly indp at baseline, uses no AD. Spouse plans to take patient home upon discharge Discussed home health services and patient/spouse agreeable, no agency preference at this time. Will plan to return w/IPAD to review HH choices No barriers identified at this time to patient's safe discharge home w/family to assist; likely home health services and close outpatient f/u recommended. CM team following for coordination of DCP; need HH referral if it is recommended and patient agreeable JUANITO Tucker Discharge Planning/Care Management CM Discharge Assessment Start: 12/30/22 12:33 Freq: Status: Active Protocol: Document 12/30/22 12:34 ZAIDA (Rec: 12/30/22 12:40 ZAIDA [id number]) Discharge Planning Assessment Assigned Certified Medical Transcriptionist JUANITO Crockett DPOA/Assigned Designee Name Mayra Castro, spouse Contact Information [phone] Advance Directives? No History Provided By Patient Prior Living Arrangements House Household Members spouse Type of transporation used prior to Relies on Others admit Independent with ADL's Yes Is patient alert and oriented? Yes: Very [place] Patient/Family Preference Home with Home Health Barriers to Discharge No Discharge Plan Home with Home Health Transportation Arrangement Spouse Additional Comment Will plan to return to room to review HH options via IPAD
--- NOTE | 2022-12-30 13:25 | P.PN_ITS ---
Subjective Subjective Interval history: 82 year old male admitted with weakness and falls. Loud murmur on exam, TTE pending. Also with GUADALUPE, recent n/v improving with IV fluids. He feels well today, has not worked with PT. Exam Vital Signs (past 8 hours): - 12/30/22 06:12 12/30/22 09:06 12/30/22 12:27 Temperature 97.6 F 97.5 F L Pulse Rate 74 76 Respiratory Rate 17 17 Blood Pressure 154/60 H 152/70 H Pulse Oximetry 94 93 97 Oxygen Delivery Method Room Air Oxygen Flow Rate 0 0 12/30/22 10:00 Temperature Pulse Rate Respiratory Rate Blood Pressure Pulse Oximetry 96 Oxygen Delivery Method Room Air Oxygen Flow Rate 0 Oxygen Delivery Method Room Air Oxygen Flow Rate 0 Narrative Exam Narrative: GEN: no acute distress HEENT: dry mucous membranes, PERRL, ecchymosis around his right eye NECK: trachea midline, no jvd PULM: clear bilaterally CV: regular rate and rhythm, 3/6 systolic murmur ABD: soft, nontender, nondistended, no organomegaly, normal bowel sounds EXT: warm and well perfused with no edema, right knee tenderness with knee immobilizer present NEURO: awake, alert, oriented, with no focal deficits noted Objective Labs 12/30/22 05:41 12/30/22 05:41 Labs: Laboratory Results - last 24 hr 12/29/22 12/29/22 12/29/22 20:17 20:17 20:17 WBC 11.7 H RBC 4.03 L Hgb 12.4 L Hct 36.0 L MCV 89.4 MCH 30.9 MCHC 34.5 RDW 13.4 Plt Count 211 Neut % (Auto) 66.5 Lymph % (Auto) 19.4 L [place] % (Auto) 12.0 Eos % (Auto) 1.6 L Baso % (Auto) 0.5 Neut # (Auto) 7800 H Lymph # (Auto) 2300 [place] # (Auto) 1400 H Eos # (Auto) 200 Baso # (Auto) 100 PT 12.6 INR 1.1 APTT 25 L Sodium 136 L Potassium 4.3 Chloride 101 Carbon Dioxide 26 BUN 37 H Creatinine 1.55 H Estimated GFR 45 L BUN/Creatinine Ratio 23.9 H Glucose 165 H Calcium 10.1 Magnesium 2.1 Total Bilirubin 1.6 H AST 19 ALT 29 Alkaline Phosphatase 69 Total Creatine Kinase 144 CK-MB (CK-2) 1.24 CK-MB (CK-2) Rel Index 0.9 L Troponin I < 0.012 NT-Pro-B Natriuret Pep Total Protein 7.3 Albumin 3.9 Globulin 3.4 Albumin/Globulin Ratio 1.1 Lipase 85 Urine RBC Urine WBC Ur Squamous Epith Cells Urine Bacteria Hyaline Casts Ur Culture Indicated? Chlamy pneumoniae PCR Adenovirus (PCR) B. pertussis DNA (PCR) B.parapertussis DNA PCR Coronavirus OC43 (PCR) Coronavirus HKU1 (PCR) Coronavirus 229E (PCR) SARS-CoV-2 (PCR) Coronavirus NL63 (PCR) Human Metapneumovir PCR Influenza Type A (PCR) Influenza Type B (PCR) M. pneumoniae (PCR) Parainfluenza 1 (PCR) Parainfluenza 2 (PCR) Parainfluenza 3 (PCR) Parainfluenza 4 (PCR) RSV (PCR) Entero/Rhino (PCR) 12/29/22 12/29/22 12/29/22 23:30 23:30 23:30 WBC RBC Hgb Hct MCV MCH MCHC RDW Plt Count Neut % (Auto) Lymph % (Auto) [place] % (Auto) Eos % (Auto) Baso % (Auto) Neut # (Auto) Lymph # (Auto) [place] # (Auto) Eos # (Auto) Baso # (Auto) PT INR APTT Sodium Potassium Chloride Carbon Dioxide BUN Creatinine Estimated GFR BUN/Creatinine Ratio Glucose Calcium Magnesium Total Bilirubin AST ALT Alkaline Phosphatase Total Creatine Kinase CK-MB (CK-2) CK-MB (CK-2) Rel Index Troponin I NT-Pro-B Natriuret Pep 481 H Total Protein Albumin Globulin Albumin/Globulin Ratio Lipase Urine RBC Urine WBC Ur Squamous Epith Cells Urine Bacteria Hyaline Casts Ur Culture Indicated? Chlamy pneumoniae PCR Not detected Adenovirus (PCR) Not detected B. pertussis DNA (PCR) Not detected B.parapertussis DNA PCR Not detected Coronavirus OC43 (PCR) Not detected Coronavirus HKU1 (PCR) Not detected Coronavirus 229E (PCR) Not detected SARS-CoV-2 (PCR) Negative Not detected Coronavirus NL63 (PCR) Not detected Human Metapneumovir PCR Not detected Influenza Type A (PCR) Not detected Influenza Type B (PCR) Not detected M. pneumoniae (PCR) Not detected Parainfluenza 1 (PCR) Not detected Parainfluenza 2 (PCR) Not detected Parainfluenza 3 (PCR) Not detected Parainfluenza 4 (PCR) Not detected RSV (PCR) Not detected Entero/Rhino (PCR) Not detected 12/30/22 12/30/22 12/30/22 03:15 05:41 05:41 WBC 9.5 RBC 3.68 L Hgb 11.4 L Hct 33.1 L MCV 90.0 MCH 31.1 MCHC 34.5 RDW 13.4 Plt Count 189 Neut % (Auto) 65.5 Lymph % (Auto) 21.4 L [place] % (Auto) 10.3 Eos % (Auto) 2.2 Baso % (Auto) 0.6 Neut # (Auto) 6200 Lymph # (Auto) 2000 [place] # (Auto) 1000 H Eos # (Auto) 200 Baso # (Auto) 100 PT INR APTT Sodium 135 L Potassium 3.9 Chloride 103 Carbon Dioxide 24 BUN 31 H Creatinine 1.33 H Estimated GFR 54 L BUN/Creatinine Ratio 23.3 H Glucose 133 H Calcium 8.8 Magnesium Total Bilirubin 1.4 H AST 22 ALT 34 Alkaline Phosphatase 62 Total Creatine Kinase CK-MB (CK-2) CK-MB (CK-2) Rel Index Troponin I NT-Pro-B Natriuret Pep Total Protein 6.3 Albumin 3.2 L Globulin 3.1 Albumin/Globulin Ratio 1.0 Lipase Urine RBC None seen Urine WBC 0-1/hpf Ur Squamous Epith Cells 0-1 /hpf Urine Bacteria None seen Hyaline Casts 0-1/lpf Ur Culture Indicated? Cult not indicated Chlamy pneumoniae PCR Adenovirus (PCR) B. pertussis DNA (PCR) B.parapertussis DNA PCR Coronavirus OC43 (PCR) Coronavirus HKU1 (PCR) Coronavirus 229E (PCR) SARS-CoV-2 (PCR) Coronavirus NL63 (PCR) Human Metapneumovir PCR Influenza Type A (PCR) Influenza Type B (PCR) M. pneumoniae (PCR) Parainfluenza 1 (PCR) Parainfluenza 2 (PCR) Parainfluenza 3 (PCR) Parainfluenza 4 (PCR) RSV (PCR) Entero/Rhino (PCR) [facility] Medical History Chronic kidney disease Coronary artery disease Diabetes Hyperlipidemia Hypertension Surgical History Status post aorto-coronary artery bypass graft Social History household members: spouse Smoking Status: Former smoker alcohol intake: current Assessment & Plan Assessment & Plan narrative: 1. Syncope, weakness -suspect syncope is secondary to nausea and vomiting -most likely etiology is hypovolemia -did get fluids in the ED -continue IV fluids for now with GUADALUPE continuing to improve, also pending orthostatics -ordered for PT consult -other etiology is vasovagal from vomiting or possible symptomatic aortic stenosis -ordered echo to eval severity 2. GUADALUPE -suspect secondary to hypovolemia -ordered IV fluids -recheck creatinine in morning, if not improved will need further workup with urine electrolytes and imaging 3. Leukocytosis -unclear etiology, may be reactive and has improved today. -no fevers, chills -with nausea, vomiting, mildly elevated bilirubin but ultrasound unremarkable of his abdomen. -UA without evidence of infection -chest xray negative for infection -may be stress response and not infectious 4. Elevated bilirubin -no other abnormal lfts -trend lfts -ordered abdominal ultrasound as has been having nausea, vomiting 5. CAD -continue home medications once reconciled 6. HTN -hold anti-hypertensives for now 7. Type 2 Diabetes -ordered insulin sliding scale -check glucose achs 8. Aortic stenosis -ordered for echo to evaluate severity of stenosis 9. Knee pain -follow up with outpatient knee mri -knee immobilizer in place CODE: unknown, Proxy: Mayra Castro, spouse Quality VTE Deep Vein Thrombosis/Pulmonary Embolism Present on Admission: No
--- NOTE | 2022-12-30 16:05 | PT.IIE ---
Surgical History (Last Reviewed 12/29/22 @ 23:47 by Ismael Rocha MD) Status post aorto-coronary artery bypass graft Medical History (Last Reviewed 12/29/22 @ 23:47 by Ismael Rocha MD) Chronic kidney disease Coronary artery disease Diabetes Hyperlipidemia Hypertension Physical Therapy Inpatient Evaluation/Re-Eval M1 PT/OT-IP Prior Functional Status Start: 12/30/22 11:30 Freq: NEEDED Status: Active Protocol: Document 12/30/22 15:48 ES (Rec: 12/30/22 16:05 ES [id number]) Medical Review Prior Functional Status Medical History Reviewed Yes Communication [employer] [place], wears hearing aids and lip reads Mobility and Gait Indep; has been sitting and scooting in 4WW since knee injury Activities of Daily Living and IADL's Indep Social History Household Members spouse Living Arrangements Apartment/Condo Number of Floors (Floors) One Floor Number of Stairs To Enter/Railing? 2 small steps with rails Home Environment Standard Height Toilet,Walk in Shower,Built-In Shower Seat Home Equipment Four Wheel Walker,Straight Cane,Grab Bars In Shower Employment Status Retired M2 PT-IP Current Condition Start: 12/30/22 11:30 Freq: NEEDED Status: Active Protocol: Document 12/30/22 15:48 ES (Rec: 12/30/22 16:05 ES [id number]) Physical Therapy Current Condition Current Condition Evaluation Date 12/30/22 Treatment Diagnosis Weakness Onset Date 12/29/22 M3 PT-IP Subjective Start: 12/30/22 11:30 Freq: NEEDED Status: Active Protocol: Document 12/30/22 15:48 ES (Rec: 12/30/22 16:05 ES [id number]) Subjective Physical Therapy Visit Type Type Initial Evaluation Visit Start Time 15:15 Visit Stop Time 15:45 Total Visit Minutes 30 Physical Therapy Visit Comments Patient Comments Patient reported his knee doesn't bother him when sitting still, but it hurts with bending. Has been wearing a knee immobilizer that his son gave him which helps. Patient agreeable to work with PT. Patient Goals To go back home, to be able to move his leg without hurting. Therapy Pain Assessment Pain When Pain Assessed During Mobility Pain Present Pain Present Pain Reported Location R knee Intensity 5 Scale Used Numeric (0 - 10) Description With Movement Pain Management Techniques Modification of Treatment,Re- positioning M4 PT-IP Mobility and Gait Start: 12/30/22 11:30 Freq: NEEDED Status: Active Protocol: Document 12/30/22 15:48 ES (Rec: 12/30/22 16:05 ES [id number]) PT-Bed Mobility Assessment Supine to Sit Supine to Sit Independent Scooting Scooting to Edge of Bed Independent PT-Transfer Assessment Sit to and From Stand Sit to and from Stand Standby Assistance Equipment Transfer Assistive Device Front Wheeled Walker Orthotic/Prosthetic Devices or Brace: Yes Transfers Transfer Destination Chair Transfer Technique Stand Step Pivot Transfer Ability Level of Assist Standby Assistance Comments Mobility Comments Cues for sequencing to accommodate knee immobilizer during stand to sit. Gait Assessment Gait Gait Assistance Required: Contact Guard Assist Distance (Feet) 60 Assistive Devices Assistive Device Front Wheeled Walker Orthotic/Prosthetic Devices or Brace: Yes Gait Deviations General Gait Pattern Antalgic,Decreased Stride Length,Step-to Gait Factors Limiting Gait Function Factors Limiting Gait Function Decreased Strength,Limited Range of Motion,Pain Comments Gait Comments Ambulated with knee immobilizer. Stair Climbing Assessment Comments Stair Climbing Comments Not observed this visit PT-Balance Assessment Sitting Balance and Reactions Static Sitting Balance Ability Good Dynamic Sitting Balance Ability Good Standing Balance and Reactions Static Standing Balance Ability Good Dynamic Standing Balance Ability Fair Device Used FWW M5 PT-IP Objective Assessments Start: 12/30/22 11:30 Freq: NEEDED Status: Active Protocol: Document 12/30/22 15:48 ES (Rec: 12/30/22 16:05 ES [id number]) Orientation Orientation/Cognition Level of Alertness Alert Orientation Name,Age,Birthday,Month,Date, Year,Day of Week,Place, Situation Language Function Ability Hard of Hearing Safety Awareness Understands Safety Issues Memory Description No Deficits Noted Gross Range of Motion Upper Extremity ROM Assessment Within Functional Limits Lower Extremity ROM Assessment Right Impaired Impairments R knee flexion limited due to pain Strength Upper Extremity Strength Assessment Within Functional Limits Lower Extremity Strength Assessment Right Impaired Hip WFL Knee Weakness 2/2 pain Ankle WFL Coordination Assessment Gross Coordination Gross Coordination WNL Sensation Assessment Sensation Gross Sensation WNL Muscle Tone Muscle Tone WNL Yes M6 PT-IP Treatment Start: 12/30/22 11:30 Freq: NEEDED Status: Active Protocol: Document 12/30/22 15:48 ES (Rec: 12/30/22 16:05 ES [id number]) Physical Therapy Treatment Education Education Provided Safety M7 PT-IP Assessment and Plan Start: 12/30/22 11:30 Freq: NEEDED Status: Active Protocol: Document 12/30/22 15:48 ES (Rec: 12/30/22 16:05 ES [id number]) PT Summary Assessment and Plan Potential Rehabilitation Potential Good Status of Condition at Evaluation Stable Summary Impairments Pain,ROM,Strength,Balance, Transfers,Gait Assessment Summary Patient is a 82 year old male with impaired functional mobility due to the above impairments. He demonstrated decreased balance with gait and transfers due to R knee pain and weakness, and is at increased risk for falls. He required use of FWW for mobility; will need to assess safety with 4WW to use at home . He tolerated activity with minimal increase in pain while wearing knee immobilizer. He will benefit from further PT to improve safety and independence with mobility in order to d/c home safely with . Goals Transfer Goal Independent Gait Goal Independent Gait Distance 100 Other Goals Able to ascend/descend 2 small steps with rails modified indep wearing knee immobilizer . Days to Meet Goals 3 Frequency of Treatment Frequency Of Treatment Twice a Day Treatment Plan Physical Therapy Treatment Plan Transfer Training,Gait Training,Therapeutic Exercise, Balance Retraining Other Recommendations and Next Treatment Instruct in appropriate ROM/ Focus strength exercises for RLE as indicated. Precautions Brace Knee immobilizer for comfort. Weight Bearing Status Weight Bearing Status Weight Bear as Tolerated Recommendations To Nursing Amount of Assist Needed Standby Assistance Discharge Recommendations PT Discharge Recommendations Home Health Transportation Needs at Discharge Private Vehicle
--- NOTE | 2022-12-30 18:54 | PC.NURSE ---
Pt refuses to use the call light throughout the shift despite reeducation by several staff members to include this RN, RAMA Bey, two CNAs, and PT. Pt's bed alarm is on. Informed the pt that door to his room is to remain open for his safety so staff can see him attempting to get up from the bed.
[2022-12-30] MEDS: SODIUM CHLORIDE 0.9% 1,000 ML 100 ML IV (23:32)
[2022-12-30] MEDS: INSULIN LISPRO 100 UNIT/ML 3ML VIAL SUBCUT (23:33)
[2022-12-31] VITALS (9 sets, daily range): BP systolic 128–178; BP diastolic 50–70; PULSE 73–89; RESP 17–20; TEMP 36.5–37.2; O2SAT 93–98
[2022-12-31] MEDS: ENOXAPARIN 40 MG/0.4 ML SYRINGE SUBCUT (08:00)
[2022-12-31] MEDS: INSULIN LISPRO 100 UNIT/ML 3ML VIAL SUBCUT ×2 (08:01→12:13)
[2022-12-31 08:51] LABS: BUN Creatinine Ratio 21.7 (6-22); Blood Urea Nitrogen 28 mg/dL (9-20); Calcium 8.8 mg/dL (8.4-10.2); Carbon Dioxide 24 mmol/L (22-32); Chloride 106 mmol/L (98-107); Estimated Glomerular Filt Rate 56 mL/min (>60); Glucose 160 mg/dL (80-110); HEMOLYSIS < 15 (0-50); Potassium 4.1 mmol/L (3.4-5.1); Sodium 139 mmol/L (137-145)
--- NOTE | 2022-12-31 13:25 | PT.IPTN ---
Physical Therapy Treatment Note M2 PT-IP Current Condition Start: 12/30/22 11:30 Freq: NEEDED Status: Active Protocol: Document 12/31/22 13:11 ES (Rec: 12/31/22 13:24 ES [id number]) Physical Therapy Current Condition Current Condition Evaluation Date 12/30/22 Treatment Diagnosis Weakness Onset Date 12/29/22 M3 PT-IP Subjective Start: 12/30/22 11:30 Freq: NEEDED Status: Active Protocol: Document 12/31/22 13:11 ES (Rec: 12/31/22 13:24 ES [id number]) Subjective Physical Therapy Visit Type Type Treatment Note Visit Start Time 11:08 Visit Stop Time 11:34 Total Visit Minutes 26 Number of INK PRINTER Visits 0 Physical Therapy Visit Comments Patient Comments Patient reported his knee feels better today and was agreeable to work with PT. He stated he is worried about his at home and wants to go back home as soon as possible. Therapy Pain Assessment Pain When Pain Assessed During Mobility Pain Present Pain Present Pain Reported Location R knee Intensity 3 Scale Used Numeric (0 - 10) Description With Movement M4 PT-IP Mobility and Gait Start: 12/30/22 11:30 Freq: NEEDED Status: Active Protocol: Document 12/31/22 13:11 ES (Rec: 12/31/22 13:24 ES [id number]) PT-Bed Mobility Assessment Supine to Sit Supine to Sit Independent Scooting Scooting to Edge of Bed Independent PT-Transfer Assessment Sit to and From Stand Sit to and from Stand Standby Assistance Equipment Transfer Assistive Device Front Wheeled Walker Orthotic/Prosthetic Devices or Brace: Yes Transfers Transfer Destination Chair Transfer Technique Stand Step Pivot Transfer Ability Level of Assist Standby Assistance Comments Mobility Comments Performed initially without knee immobilizer then with immobilizer to improve stability and decrease pain. Gait Assessment Gait Gait Assistance Required: Standby Assistance Distance (Feet) 150 Assistive Devices Assistive Device Front Wheeled Walker Orthotic/Prosthetic Devices or Brace: Yes Gait Deviations General Gait Pattern Decreased Stride Length,Step- to Gait Factors Limiting Gait Function Factors Limiting Gait Function Limited Range of Motion,Pain Comments Gait Comments Ambulated with knee immobilizer. Patient denied increased pain with ambulation . Attempted 4WW but patient more safe with FWW. Stair Climbing Assessment Evaluation Level of Assist On Stairs Standby Assistance Devices Stair Climbing Assistive Devices Left Railing,Right Railing Technique/Endurance Stair Climbing Direction Ascend and Descend Stair Climbing Technique Step to Step Number of Steps Climbed 3 Stair Climbing Set # Repetitions (reps) 1 Comments Stair Climbing Comments Cues provided for sequencing RLE first with descending. PT-Balance Assessment Sitting Balance and Reactions Static Sitting Balance Ability Good Dynamic Sitting Balance Ability Good Standing Balance and Reactions Static Standing Balance Ability Good Dynamic Standing Balance Ability Fair Device Used FWW M5 PT-IP Objective Assessments Start: 12/30/22 11:30 Freq: NEEDED Status: Active Protocol: Document 12/30/22 15:48 ES (Rec: 12/30/22 16:05 ES [id number]) Orientation Orientation/Cognition Level of Alertness Alert Orientation Name,Age,Birthday,Month,Date, Year,Day of Week,Place, Situation Language Function Ability Hard of Hearing Safety Awareness Understands Safety Issues Memory Description No Deficits Noted Gross Range of Motion Upper Extremity ROM Assessment Within Functional Limits Lower Extremity ROM Assessment Right Impaired Impairments R knee flexion limited due to pain Strength Upper Extremity Strength Assessment Within Functional Limits Lower Extremity Strength Assessment Right Impaired Hip WFL Knee Weakness 2/2 pain Ankle WFL Coordination Assessment Gross Coordination Gross Coordination WNL Sensation Assessment Sensation Gross Sensation WNL Muscle Tone Muscle Tone WNL Yes M6 PT-IP Treatment Start: 12/30/22 11:30 Freq: NEEDED Status: Active Protocol: Document 12/31/22 13:11 ES (Rec: 12/31/22 13:24 ES [id number]) Physical Therapy Treatment Education Education Provided Safety M7 PT-IP Assessment and Plan Start: 12/30/22 11:30 Freq: NEEDED Status: Active Protocol: Document 12/31/22 13:11 ES (Rec: 12/31/22 13:24 ES [id number]) PT Summary Assessment and Plan Potential Rehabilitation Potential Good Status of Condition at Evaluation Stable Summary Impairments Pain,ROM,Strength,Balance, Transfers,Gait Progress Towards Goals Progressing Toward Goals,Safe For Discharge Assessment Summary Patient demonstrated improved activity tolerance today with improved pain and ability to transfers and ambulate increased distances with FWW. Patient would benefit from FWW vs 4WW at home to reduce fall risk with household mobility. He demonstrated decreased balance and safety awareness with 4WW. He was able to ascend/descend 3 stairs with railings without difficulty. Recommend HHPT for further rehab to improve strength, ROM , and mobility as knee improves. Goals Transfer Goal Independent Gait Goal Independent Gait Distance 100 Other Goals Able to ascend/descend 2 small steps with rails modified indep wearing knee immobilizer . Days to Meet Goals 3 Frequency of Treatment Frequency Of Treatment Twice a Day Treatment Plan Physical Therapy Treatment Plan Transfer Training,Gait Training,Therapeutic Exercise, Balance Retraining Other Recommendations and Next Treatment Gait training with FWW vs 4WW Focus Precautions Brace Knee immobilizer for comfort. Weight Bearing Status Weight Bearing Status Weight Bear as Tolerated Recommendations To Nursing Amount of Assist Needed Standby Assistance Discharge Recommendations PT Discharge Recommendations Home Health Equipment Needed for Home Before FWW Discharge Transportation Needs at Discharge Private Vehicle
--- NOTE | 2022-12-31 13:27 | P.DS_ITS ---
History of Present Illness History of Present Illness Date Patient Seen: 12/31/22 Time Patient Seen: 13:27 Chief complaint: rt leg pain, passed out Narrative: Mr. Castro is an 82M with PMH CAD, PAD, aortic stenosis, HTN, HL, Type 2 Dm who presents to the hospital with weakness. He apparently had a fall at home four days ago and hurt his right knee. He is having worsening pain and difficulty with ambulating. He also has had nausea and vomiting and poor appetite for 2-3 days. He also had an episode of syncope in the bathroom where he hit his face. He declined to come to the hospital then. Since he has continued to have a poor appetite. He has had no chest pain or shortness of breath. He attempted to go to an ortho appointment but was too weak so came to the ED. He had no fevers/chills. In the ED workup was done, vitals notable for afebrile, heart rate in the 80s, respiratory rate 18, blood pressure 180s/70s. Sats 95% on room air. Labs reviewed by me and notable for WBC 11.7, hgb 12.4, plts 211. Creatinine 1.55. Bili 1.6. Trop negative. Lipase 85. Chest xray reviewed and negative for acute process. Right knee xray shows small effusion. CT C-spine negatve for acute process. CT head negative for acute process. Discharge Providers Provider Date of admission: 12/30/22 00:02 Discharge Date: 12/31/22 Primary care physician: Chantal Dumont PA-C Consults: 12/30/22 02:12 Consult to Physical Therapy Evaluate & Treat Comment: Physician Instructions: Evaluate and Treat 12/31/22 11:40 Consult to Physical Therapy Evaluate & Treat Comment: Physician Instructions: FWW For Home Use Discharge provider: Bonifacio Larios DO Summary Hospital Course Discharge Diagnosis: 1. Syncope, weakness, probable gastirits or enteritis 2. GUADALUPE 3. Leukocytosis 4. Elevated bilirubin 5. CAD 6. HTN 7. Type 2 Diabetes 8. Aortic stenosis 9. Knee pain Hospital Course: This is an 82 year old male, admitted after an episode of syncope with GUADALUPE. He had had some nausea and vomiting prior to discharge, and was in the bathroom with change in position when syncopal episode happened, which is a reassuring story. He improved with IV fluids, and had no recurrence of symptoms. His renal function improved. He did well with physical therapy. Echocardiogram was ordered to evaluate his aortic stenosis, however patient and spouse wanted to leave prior to this being performed on the day of discharge. Aortic stenosis as the e tiology of his presentation is less likely given improvement with fluids. Time Spent with Patient Time spent: Less than 30 minutes Exam Vital Signs (past 8 hours): - 12/31/22 06:00 12/31/22 09:20 12/31/22 10:22 Temperature 97.7 F Pulse Rate 77 Respiratory Rate 20 Blood Pressure 178/56 H Pulse Oximetry 96 95 95 Oxygen Delivery Method Room Air Room Air Oxygen Flow Rate 0 Oxygen Delivery Method Room Air Oxygen Flow Rate 0 Narrative Exam Narrative: GEN: no acute distress HEENT: dry mucous membranes, PERRL, ecchymosis around his right eye NECK: trachea midline, no jvd PULM: clear bilaterally CV: regular rate and rhythm, 3/6 systolic murmur ABD: soft, nontender, nondistended, no organomegaly, normal bowel sounds EXT: warm and well perfused with no edema, right knee tenderness with knee immobilizer present NEURO: awake, alert, oriented, with no focal deficits noted Objective Labs 12/30/22 05:41 12/31/22 08:22 Labs: Laboratory Results - last 24 hr 12/31/22 08:22 Sodium 139 Potassium 4.1 Chloride 106 Carbon Dioxide 24 BUN 28 H Creatinine 1.29 H Estimated GFR 56 L BUN/Creatinine Ratio 21.7 Glucose 160 H Calcium 8.8 PFSH Medical History Chronic kidney disease Coronary artery disease Diabetes Hyperlipidemia Hypertension Surgical History Status post aorto-coronary artery bypass graft Social History household members: spouse Smoking Status: Former smoker alcohol intake: current Discharge Plan Discharge Plan Patient Disposition: Home Provider Discharge Comment: You were admitted to the hospital with a syncopal episode. You improved with fluids and symptoms improved. No medication adjustments are necessary. Discharge orders & Medications Prescriptions: Continued losartan 50 mg tablet 50 mg PO BID Patient Comments: TAKE 1 TABLET BY MOUTH TWICE DAILY FOR HIGH BLOOD PRESSURE ketoconazole 2 % shampoo 1 applic TOPICAL WEEKLY metoprolol succinate 100 mg tablet extended release 24 hr 100 mg PO DAILY Patient Comments: TAKE 1 TABLET BY MOUTH DAILY (DME) FreeStyle Lite Strips Strip MISCELLANEOUS Patient Comments: USE TO CHECK BLOOD SUGAR ONCE DAILY amlodipine 10 mg tablet 10 mg PO DAILY Patient Comments: TAKE 1 TABLET BY MOUTH DAILY triamcinolone acetonide 0.1 % ointment See Rx Instructions .ROUTE .COMPLEX Patient Comments: APPLY A THIN LAYER TWICE DAILY FOR 1-2 WEEKS TO SITES OF IRRITATION ON LOWER LEGS. THEN TAKE 2 WEEKS OFF. REPEAT IF NEEDED Rx Instructions: APPLY A THIN LAYER TWICE DAILY FOR 1-2 WEEKS TO SITES OF IRRITATION ON LOWER LEGS. THEN TAKE 2 WEEKS OFF. REPEAT IF NEEDED metformin 500 mg tablet extended release 24 hr 500 mg PO BID Patient Comments: TAKE 2 TABLETS BY MOUTH DAILY WITH FOOD FOR DIABETES rosuvastatin 40 mg tablet 40 mg PO DAILY Victoza 2-Amandeep 0.6 mg/0.1 mL (18 mg/3 mL) pen injector 1.2 mg SUBCUT DAILY Patient Comments: ADMINISTER 1.2 MG UNDER THE SKIN DAILY Follow up/Referrals: Chantal Dumont PA-C [Primary Care Provider] - Diet/Activity/Treatments Diet: Diet as Tolerated Activity: As tolerated Visit Report/Discharge Packet Instructions: Acute Kidney Injury, How to Prevent Falls, DI for Muscle Weakness, DI for Acute Kidney Injury Stand Alone Forms: Patient Portal/API, Stroke Signs & Symptoms Discharge Data Primary Care Provider: Chantal Dumont Attending Provider: Ismael Rocha Admit Date/Time: 12/30/22 00:02 Discharges patient from system. Discharge Date/Time: 12/31/22 16:05 Quality VTE Deep Vein Thrombosis/Pulmonary Embolism Present on Admission: No
--- NOTE | 2022-12-31 15:11 | CM.DPNOTE ---
DC Note Home w/spouse expected this afternoon. Met w/patient and spouse to review DCP; patient eager to return home and denies need for HH services Plan: Discharge home w/spouse and close outpatient follow up No CM team needs at this time JW
--- NOTE | 2022-12-31 16:03 | PC.NURSE ---
Day shift: Left unit via WC at approx 1600. Taken out by Gila ROSSI. Pt's Spouse is driving them home. Paperwork is signed and all questions answered. No new MD scripts. Pt has all personal belongings. Spouse was in room for d/c teachings. Encouraged to f/u with PCP.
== END 2022-12-31 16:05 | disposition home or self-care (01) ==
LOC: ED 23:45 → AC 12-30 00:03
PROVIDERS: Internal Medicine; Admitting Provider Internal Medicine; Emergency Provider Emergency Medicine; PCP Physician Assistant; Visit Provider Internal Medicine
DX: R55 Syncope and collapse (principal); R53.1 Weakness; M25.561 Pain in right knee; Z95.1 Presence of aortocoronary bypass graft; I73.9 Peripheral vascular disease, unspecified; I12.9 Hypertensive chronic kidney disease with stage 1 through stage 4 chronic kidney disease, or unspecified chronic kidney disease; E11.22 Type 2 diabetes mellitus with diabetic chronic kidney disease; N18.9 Chronic kidney disease, unspecified; Z79.84 Long term (current) use of oral hypoglycemic drugs; N17.9 Acute kidney failure, unspecified; D72.829 Elevated white blood cell count, unspecified; R17 Unspecified jaundice; I25.10 Atherosclerotic heart disease of native coronary artery without angina pectoris; I35.0 Nonrheumatic aortic (valve) stenosis; Z20.822 Contact with and (suspected) exposure to COVID-19
CPT/HCPCS: 36415; 70450; 71045; 72125; 73562; 76700; 80048; 80053; 81015; 82550; 82553; 82962; 83690; 83735; 83880; 84484; 85025; 85610; 85730; 87633; 87635; 93005; 93010; 94640; 96360; 96361; 96372; 97116; 97162; 97530; 99285; C9803; G0378; J1650; J7050